=== PATIENT | female | born 1995 | race Caucasian/White ===

== ENCOUNTER 2024-06-08 12:10 | Inpatient (IN) | payer MEDICAID, OTHER, SELFPAY ==
--- NOTE | 2024-06-08 12:14 | ED.GENADULT ---
HPI - General Adult General Chief complaint: Psychiatric Symptoms Stated complaint: Psych eval? Time Seen by Provider: 06/08/24 12:37 Source: patient Mode of arrival: ambulatory Limitations: no limitations History of Present Illness ED Provider: Patria Baptiste PA-C HPI narrative: Patient is a 28 year old assigned female at with a history of bipolar disorder presenting to the emergency department today with new homelessness and not medication compliant. Patient states that over the last year and a half she has not been taking her medications like she is supposed to for her bipolar disorder and her psychiatrist retired / stopped practicing. Patient states that she is newly homeless and that has caused her racing thoughts to be worse. Patient denies any dizziness, lightheadedness, abdominal pain, nausea, vomiting, fever, chills, blurry vision, double vision, loss of vision, chest pain, difficulty breathing, shortness of breath, back pain, night sweats, pain with urination, increased urinary frequency, increased urinary urgency, blood in her urine or stool, syncope or a near syncopal episode, recent trauma or falls, bowel incontinence, bladder incontinence, or any other complaints at this time. Relieving factors: none Exacerbating factors: none Associated symptoms: denies other symptoms Treatments prior to arrival: none Related Data Home Medications ?Medication ?Instructions ?Recorded ?Confirmed No Known Home Meds 06/08/24 06/08/24 Allergies Allergy/AdvReac Type Severity Reaction Status Date / Time No Known Allergies Allergy Verified 06/08/24 12:21 Review of Systems Constitutional: Constitutional: Reports no additional constitutional complaints, Denies chills, Denies fever(s) and Denies night sweats Eyes: Eyes: Reports no additional eye complaints, Denies blurry vision, Denies change in vision, Denies diplopia, Denies eye discharge, Denies loss of vision and Denies eye pain ENT: Denies dizziness Cardiovascular: Cardiovascular: Reports no additional cardiovascular complaints, Denies chest pain, Denies lightheadedness, Denies Loss of Consciousness and Denies dyspnea Respiratory: Respiratory: Reports no additional respiratory complaints and Denies dyspnea Gastrointestinal: Gastrointestinal: Reports no additional gastrointestinal complaints, Denies abdominal pain, Denies melena, Denies hematochezia, Denies change in bowel habits and Denies change in stool character Genitourinary: Genitourinary: Denies hematuria, Denies urinary frequency, Denies dysuria, Denies urinary incontinence, Denies urinary hesitancy and Denies urinary urgency Musculoskeletal: Musculoskeletal: Reports no additional musculoskeletal complaints, Denies numbness and Denies tingling Neurologic: Denies dizziness, Denies loss of vision, Denies numbness and Denies tingling Psychiatric: Comments: racing thoughts Endocrine: Endocrine: Reports no additional endocrine complaints Hematologic/Lymphatic: Hematologic/Lymphatic: Reports no additional hematologic/lymphatic complaints Allergic/Immunologic: Allergic/Immunologic: Reports no additional allergic/immunologic complaints PMFSH Past Medical History Attestation statement: The following information was validated with the patient. Source: old records reviewed and nursing notes reviewed Social History Social History Advance Directives: No Physical Exam ED Vital Signs: Vital Signs - 24 hr 06/08/24 21:09 06/08/24 23:46 06/09/24 09:03 Temperature 98.5 F 98.5 F 97.7 F Pulse Rate 87 87 72 Respiratory Rate 16 16 14 Blood Pressure 128/76 128/76 99/59 L Pulse Oximetry 98 98 97 Oxygen Delivery Method Room Air Room Air Room Air BMI result Body Mass Index 20.7 Const General: cooperative, no acute distress, alert and awake Nutritional Appearance: well nourished Orientation/consciousness: patient oriented x3 Limitations: no limitations HENMT Head: Yes normal to inspection and Yes atraumatic Ears: hearing grossly normal bilaterally and external ears normal General nose exam: Normal external nose present, no nasal discharge noted and no epistaxis Face and sinus: Yes normal facial exam, No abrasion and No laceration Mouth: Normal oral and palatal mucosa present, no drooling and no muffled voice Eyes General: appearance normal, both eyes and all related structures Periorbital: periorbital findings normal Eyelids: Yes eyelids normal Conjunctivae: conjunctivae normal Pupils: Equal, round and reactive pupils present EOM: EOMs intact bilaterally Neck Neck: Yes normal visual inspection, Yes full ROM and Yes no lymphadenopathy Chest Chest palpation & inspection: normal inspection of the chest Resp Effort & Inspection: normal respiratory effort and able to speak in complete sentences GI Inspection: Yes normal to inspection Neuro General: patient oriented x3 and moves all extremities Cranial nerves: Yes Equal, round and reactive pupils present Cognition (Neuro): normal cognition Extrem General: Yes normal to inspection, Yes full ROM and Yes capillary refill normal Psych Appearance: grossly normal Mental Status: mental status grossly normal Attitude: cooperative Thought process: Flight of ideas present Course Course Course Narrative: This is an RME done by FRANCES Polo: Additional HPI, ROS, PE not included below will be deferred to primary provider. 28 yoa female presents w/ Hx of Bipolar, anxiety, with concerns of feeling at rock bottom , poor appetite, has severe panic attack for the past few days. States shes felt up and down with her moods, she reports taking zoloft, xanax in the past. Does not have a psychiatrist at the moment and has not taken any mental health medications. She states shes homeless. No drugs, alcohol or tobacco use. No SI or HI. Appearance: Alert.? Oriented X3.? No acute cardiopulmonary distress distress.? Head: Normocephalic, atraumatic, no step-offs or deformities Neck: Normal inspection.? Neck supple.? CVS: Pulses normal.? Respiratory: No respiratory distress.? Skin: ? Normal skin color. Extremities: 5/5 strength to bilateral upper and lower extremities Neuro: Oriented X 3.? No motor deficit.? No sensory deficit. Reevaluation(s) Reevaluation #1: Physician observation continued. VS stable, inpatient bed search was given zyprexa and ativan yesterday with good effect, benadryl to sleep, no acute events overnight ELI 727am 06/09/24 Reevaluation #2: observation care revealed that the patient does meet psychiatric necessity for hospitalization. final disposition discussed with the patient. The patient completed observation care at 135pm inpatient admission 06/09/24 ELI Medications Administered Discontinued Medications Generic Name Dose Route Start Last Admin Trade Name Freq PRN Reason Stop Dose Admin Diphenhydramine HCl 50 mg 06/08/24 22:10 06/08/24 22:16 Diphenhydramine Hcl 25 Mg Capsule PO 06/08/24 22:11 50 mg ONCE ONE Administration Lorazepam 2 mg 06/08/24 13:08 06/08/24 13:13 Lorazepam 1 Mg Tablet PO 06/08/24 13:09 2 mg ONCE ONE Administration Lorazepam 2 mg 06/09/24 11:58 06/09/24 12:04 Lorazepam 1 Mg Tablet PO 06/09/24 11:59 2 mg ONCE ONE Administration Olanzapine 5 mg 06/08/24 13:49 06/08/24 14:06 Olanzapine 5 Mg Tablet PO 06/08/24 13:50 5 mg ONCE ONE Administration Medical Decision Making Medical Decision Making [facility] Narrative: Patient is a 28 year old assigned female at with a history of bipolar disorder presenting to the emergency department today with new homelessness and untreated bipolar disorder. Patient's physical exam showed a manic individual. Patient's blood work was unremarkable. Patient's urine showed a possible UTI however, the patient has no complaints or symptoms at this time, will await culture before initiating treatment. I explained my physical exam findings as well as all test results to the patient. I answered all questions asked by the patient. Patient was evaluated by the CARE team who recommended inpatient level of care. Patient will remain in physician observation until she is either admitted here in our psychiatric unit or she is accepted by an outside facility. Differential Diagnosis Differential Diagnoses: The differential diagnosis associated with the presentation includes Manic Untreated bipolar disorder Admission/Observation Consideration of admission/observation: Escalation of care including admission/observation considered Patient meets in patient level of care for psychiatric admission. Consult Healthcare Provider Management of the patient was discussed with: Behavioral Health Provider (recommended inpatient level of care as noted in the MDM Rationale portion of this note.) Lab Data [facility] Lab Attestation statement: I reviewed the patient's lab results. My interpretation of these results are in the MDM Rationale portion of this note. 06/08/24 12:25 06/08/24 12:25 Labs: Lab Results 06/08/24 06/08/24 Range/Units 12:25 12:42 WBC 8.2 (4.8-10.8) X10*3/uL RBC 4.43 (4.20-5.50) X10*6/uL Hgb 13.8 (12.0-16.0) g/dl Hct 41.3 (37.0-47.0) % MCV 93.2 (80.0-98.0) fL MCH 31.2 (27.0-33.0) pg MCHC 33.4 (31.0-35.0) g/dl RDW 13.3 (11.0-16.0) % Plt Count 366 (160-400) X10*3/uL MPV 10.9 (9.4-12.3) fL Immature Gran % (Auto) 0.2 (0.0-0.4) % Neut % (Auto) 58.1 (45-73) % Lymph % (Auto) 32.5 (20-40) % [place] % (Auto) 8.0 (2-11) % Eos % (Auto) 0.6 (0-4) % Baso % (Auto) 0.6 (0-2) % Lymph # (Auto) 2.7 (1.2-4.9) X10*3/uL [place] # (Auto) 0.7 (0.1-1.2) X10*3/uL Eos # (Auto) 0.1 (0.0-0.4) X10*3/uL Baso # (Auto) 0.1 (0.0-0.2) X10*3/uL Abs Immat Gran (auto) 0.02 (0.00-0.03) X10*3/uL Absolute Neuts (auto) 4.7 (2.0-8.3) x10*3/uL Absolute Nucleated RBC 0.000 (0.0-0.012) X10*3/uL Nucleated RBC % (auto) 0.0 (0.0-0.2) /100WBC Sodium 137 (135-145) mmol/L Potassium 4.1 (3.3-5.1) mmol/L Chloride 101 (96-108) mmol/L Carbon Dioxide 27 (22-29) mmol/L Anion Gap 13 (12-20) BUN 9 (9-16) mg/dL Creatinine 0.99 (0.5-1.4) mg/dL Estim Creat Clear Calc 80.0 Estimated GFR > 60 Random Glucose 110 (60-115) mg/dL Calcium 9.6 (8.4-10.2) mg/dL Magnesium 2.4 (1.6-2.6) mg/dL Total Bilirubin 0.7 (0.0-1.0) mg/dL AST 18 (5-31) U/L ALT 14 (0-31) U/L Alkaline Phosphatase 41 (39-117) U/L Total Protein 7.9 (6.5-8.0) g/dL Albumin 4.5 (3.5-5.0) g/dL Beta HCG, Quant < 2 mIU/mL Urine Color Yellow Urine Appearance Cloudy Urine pH 6.0 (5.0-9.0) Ur Specific [place] >= 1.030 H (1.005-1.025) Urine Protein 30 (1+) H (Neg-Trace) mg/dL Urine Glucose (UA) Negative (Negative) mg/dL Urine Ketones Trace (Negative) mg/dL Urine Blood Negative (Negative) Urine Nitrite Negative (Negative) Ur Leukocyte Esterase Small (1+) H (Negative) Urine RBC 0-2 (0-2) /HPF Urine WBC 6-10 (0-5) /HPF Ur Squamous Epith Cells >20 (0-2) /HPF Urine Bacteria 2+ (None Seen) Hyaline Casts 0-2 (0-2) /LPF Urine Test NEGATIVE (NEGATIVE) Urine Opiates Screen Not Detected (Not Detect) Ur Buprenorphine Scrn Not Detected (Not Detect) ng/mL Ur Oxycodone Screen Not Detected (Not Detect) ng/mL Urine Methadone Screen Not Detected (Not Detect) ng/mL Urine Fentanyl Screen POSITIVE H (Not Detect) Ur Barbiturates Screen Not Detected (Not Detect) Ur Phencyclidine Scrn Not Detected (Not Detect) Ur Amphetamines Screen Not Detected (Not Detect) U Benzodiazepines Scrn Not Detected (Not Detect) Urine Cocaine Screen POSITIVE H (Not Detect) U Marijuana (THC) Screen Not Detected (Not Detect) Ethyl Alcohol < 10 mg/dL Critical Care Time Critical Care Time Critical Care Time: Yes Total Critical Care Time: 34 Attestation: I spent 34 minutes of Critical Care Time with this patient. This does not include time spent on separately reported billable procedures. Discharge Plan Discharge Clinical Impression: Tracy Patient Disposition: Admitted As Inpatient Interventions: [place]-Suicide Risk Severity Scale Last Done: 06/08/24 18:58
[2024-06-08 12:15] VITALS: BP 147/75; PULSE 83; RESP 16; TEMP 37; O2SAT 98; BMI 20.7
[2024-06-08 12:32] LABS: MANUAL DIFF FLAG NO
[2024-06-08 12:56] LABS: Appearance Urine Cloudy; Color Urine Yellow; Glucose Urine UA Negative (Negative); Leukocyte Esterase Urine Small (1+) (Negative); Nitrite Urine Negative (Negative); Specific Gravity - Urine >= 1.030 (1.005-1.025); UMIC TRIGGER UACC YES; Urine Blood Negative (Negative); Urine Ketones Trace mg/dL (Negative); Urine Protein 30 (1+) mg/dL (Neg-Trace)
[2024-06-08 12:57] LABS: UPreg QC Valid YES; Urine Pregnancy NEGATIVE (NEGATIVE)
[2024-06-08 13:01] LABS: Alanine Aminotransferase 14 U/L (0-31); Albumin Level 4.5 g/dL (3.5-5.0); Alkaline Phosphatase 41 U/L (39-117); Anion Gap 13 (12-20); Aspartate Amino Transferase 18 U/L (5-31); Bilirubin Total 0.7 mg/dL (0.0-1.0); Blood Urea Nitrogen 9 mg/dL (9-16); Calcium 9.6 mg/dL (8.4-10.2); Carbon Dioxide 27 mmol/L (22-29); Chloride 101 mmol/L (96-108); Estimated Glomerular Filt Rate > 60; Ethanol < 10 mg/dL; Glucose Random 110 mg/dL (60-115); HCG Quantitative < 2 mIU/mL; Magnesium 2.4 mg/dL (1.6-2.6); Potassium 4.1 mmol/L (3.3-5.1); Sodium 137 mmol/L (135-145); Total Protein 7.9 g/dL (6.5-8.0)
[2024-06-08 13:08] LABS: Amphetamine Screen Urine Not Detected (Not Detect); Barbiturates, Urine Not Detected (Not Detect); Benzodiazepines Screen Urine Not Detected (Not Detect); Buprenorphine Scr Not Detected (Not Detect); Cannabinoid Screen Urine Not Detected (Not Detect); Cocaine Screen Urine POSITIVE (Not Detect); Fentanyl, urine POSITIVE (Not Detect); Methadone Screen, Urine Not Detected (Not Detect); Opiate Screen Urine Not Detected (Not Detect); Oxycodone Screen Urine Not Detected (Not Detect); Phencyclidine Screen Urine Not Detected (Not Detect)
[2024-06-08] MEDS: LORazepam 1 MG TABLET 2 MG PO (13:13)
--- NOTE | 2024-06-08 13:16 | PC.NURSE ---
pt medicated per order
[2024-06-08 13:28] LABS: Basophils Absolute Auto 0.1 X10*3/uL (0.0-0.2); Basophils Percent Auto 0.6 % (0-2); Eosinophils Absolute Auto 0.1 X10*3/uL (0.0-0.4); Eosinophils Percent Auto 0.6 % (0-4); Hematocrit 41.3 % (37.0-47.0); Hemoglobin 13.8 g/dl (12.0-16.0); Imm Gran Abs Auto 0.02 X10*3/uL (0.00-0.03); Imm Gran Pct Auto 0.2 % (0.0-0.4); Lymphocytes Absolute Auto 2.7 X10*3/uL (1.2-4.9); Lymphocytes Percent Auto 32.5 % (20-40); Mean Corpuscular HGB Conc 33.4 g/dl (31.0-35.0); Mean Corpuscular Hemoglobin 31.2 pg (27.0-33.0); Mean Corpuscular Volume 93.2 fL (80.0-98.0); Mean Platelet Volume 10.9 fL (9.4-12.3); Monocytes Absolute Auto 0.7 X10*3/uL (0.1-1.2); Neutrophils Absolute Auto 4.7 x10*3/uL (2.0-8.3); Neutrophils Percent Auto 58.1 % (45-73); Platelet Count 366 X10*3/uL (160-400); Red Blood Count 4.43 X10*6/uL (4.20-5.50); Red Cell Distribution Width 13.3 % (11.0-16.0); White Blood Count 8.2 X10*3/uL (4.8-10.8)
[2024-06-08 13:47] LABS: Bacteria Urine 2+ (None Seen); Hyaline Casts Urine 0-2 /LPF (0-2); RBC Urine 0-2 /HPF (0-2); Squamous Epithelial Cell Urine >20 /HPF (0-2); UACC Culture Trigger YES
[2024-06-08] MEDS: OLANZapine 5 MG TABLET PO (14:06)
--- NOTE | 2024-06-08 18:57 | PC.NURSE ---
patient appears to remain at rest at present respirations are even and unlabored patient appears in no distress.
[2024-06-08 21:09] VITALS: BP 128/76; PULSE 87; RESP 16; TEMP 36.9; O2SAT 98
--- NOTE | 2024-06-08 21:48 | MHC.EDTECH ---
pt given sandwich and ochoa aubrey
[2024-06-08] MEDS: diphenhydrAMINE HCL 25 MG CAPSULE 50 MG PO (22:16)
[2024-06-08 23:46] VITALS: BP 128/76; PULSE 87; RESP 16; TEMP 36.9; O2SAT 98
[2024-06-09 09:03] VITALS: BP 99/59; PULSE 72; RESP 14; TEMP 36.5; O2SAT 97
--- NOTE | 2024-06-09 10:04 | ECG_ITS ---
Test Reason : qtc check Blood Pressure : / mmHG Vent. Rate : 080 BPM Atrial Rate : 080 BPM P-R Int : 104 ms QRS Dur : 084 ms QT Int : 354 ms P-R-T Axes : 029 019 012 degrees QTc Int : 408 ms Sinus rhythm with short MN Otherwise normal ECG No previous ECGs available Referred By: Rebekah Swenson Electronically Signed By:CYNTHIA NORTON
--- NOTE | 2024-06-09 10:50 | PHA.MEDREC ---
Pharmacy Consult ? Medication Reconciliation Pharmacy has reviewed the medication reconciliation completed completed by nursing.
[2024-06-09] MEDS: LORazepam 1 MG TABLET 2 MG PO (12:04)
[2024-06-09 15:52] VITALS: BP 123/72; PULSE 84; RESP 18; TEMP 36.6; O2SAT 100
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
[2024-06-09 20:00] VITALS: BP 118/75; PULSE 84; RESP 16; TEMP 36.8; O2SAT 100
[2024-06-09] MEDS: QUEtiapine Fumarate 25 MG TABLET PO (21:22)
[2024-06-09] MEDS: Zolpidem Tartrate 5 MG TABLET PO (21:22)
[2024-06-09] MEDS: hydrOXYzine HCL 25 MG TABLET PO (21:23)
[2024-06-10 08:00] VITALS: BP 98/51; PULSE 72; RESP 14; TEMP 36.9; O2SAT 97
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
[2024-06-10] MEDS: Nicotine 21 MG PATCH.TD24 TRANSDERMA (09:09)
[2024-06-10 09:40] LABS: Cholesterol 132 mg/dL (<200); HDL Cholesterol 39 mg/dL (>40); LDL Cholesterol Calculated 77 mg/dL (<100); Triglycerides 81 mg/dL (<150)
[2024-06-10 09:49] LABS: Thyroid Stimulating Hormone 1.63 uIU/mL (0.32-4.0)
[2024-06-10 10:24] LABS: Vitamin B12 557 pg/mL (200-900)
[2024-06-10 10:49] LABS: Estimated Average Glucose 94 mg/dL; Hemoglobin A1c % 4.9 % (<6.0)
[2024-06-10] MEDS: hydrOXYzine HCL 25 MG TABLET PO (10:49)
[2024-06-10] MEDS: Nicotine 7 MG PATCH.TD24 TRANSDERMA (11:47)
[2024-06-10] MEDS: guanFACINE HCl ER 1 MG TAB.ER.24H PO (11:47)
[2024-06-10] MEDS: QUEtiapine Fumarate 50 MG TABLET PO (14:43)
[2024-06-10 19:38] VITALS: BP 117/76; PULSE 86; RESP 18; TEMP 36.6; O2SAT 100
[2024-06-10] MEDS: Mirtazapine 30 MG TABLET PO (20:38)
[2024-06-10] MEDS: Zolpidem Tartrate 5 MG TABLET PO (20:38)
[2024-06-11 07:10] VITALS: BP 116/67; PULSE 71; RESP 16; RESP 18; TEMP 36.4; O2SAT 100
[2024-06-11] MEDS: QUEtiapine Fumarate 50 MG TABLET PO ×3 (07:25→20:53)
[2024-06-11] MEDS: Nicotine 7 MG PATCH.TD24 TRANSDERMA (08:48)
[2024-06-11] MEDS: guanFACINE HCl ER 1 MG TAB.ER.24H PO ×2 (08:48→20:50)
--- NOTE | 2024-06-11 17:24 | HO.PSYCHPN ---
Subjective Subjective Date of Service: 06/11/24 Reason For Visit: SI Interim History: slept very well, decreased anxiety. amenable to DC ambien and increase intuniv to BID. per staff, signed 3-day up 06/15. denies SI. engaged. anxious. taking meds. slept 10 hours. Mental Status Exam Mental Status Exam Narrative: dressed in hospital attire, adequately groomed. cooperative. no PMA/PMR. speech nml rate, amount, loudness, tone, latency. thoughts linear and logical. affect full range, normo-intense, non-labile. mood improved. no SI/SIBI/HI/AVH expressed. Diagnostics Vital Signs (24Hr): Vital Signs - 24 hr 06/10/24 19:38 06/11/24 07:10 06/11/24 07:10 Temperature 97.9 F 97.6 F 97.6 F Pulse Rate 86 71 71 Respiratory Rate 18 18 16 Blood Pressure 117/76 116/67 116/67 Pulse Oximetry 100 100 100 Oxygen Delivery Method Room Air Room Air BMI result Body Mass Index 20.7 Labs 06/08/24 12:25 06/08/24 12:25 Labs: Laboratory Results - last 48 hr 06/10/24 08:57 Estimat Average Glucose 94 Hemoglobin A1c % 4.9 Triglycerides 81 Cholesterol 132 LDL Cholesterol, Calc 77 HDL Cholesterol 39 L Vitamin B12 557 Folate 10.0 TSH 1.63 Free T4 0.80 Medications Medications Current Medications Acetaminophen (Acetaminophen 325 Mg Tablet) 650 mg PO Q6H PRN PRN Reason: Headache/Pain Mild Scale (1-3) Al Hydroxide/Mg Hydroxide (Magnesium Hydrox/Alum Hydrox 30 Ml Oral.Susp) 30 ml PO Q6H PRN PRN Reason: Heartburn/Nausea Guanfacine HCl (Guanfacine Hcl Er 1 Mg Tab.Er.24h) 1 mg PO BID CHRISTI Hydroxyzine HCl (Hydroxyzine Hcl 25 Mg Tablet) 25 mg PO Q6H PRN PRN Reason: Anxiety Last Admin: 06/10/24 10:49 Dose: 25 mg Magnesium Hydroxide (Milk Of Magnesia 30 Ml Oral.Susp) 30 ml PO DAILY PRN PRN Reason: Constipation Mirtazapine (Mirtazapine 30 Mg Tablet) 30 mg PO BEDTIME CHRISTI Last Admin: 06/10/24 20:38 Dose: 30 mg Nicotine (Nicotine 7 Mg Patch.Td24) 7 mg TRANSDERMA DAILY CHRISTI Last Admin: 06/11/24 08:48 Dose: 7 mg Nicotine Polacrilex (Nicotine Polacrilex 2 Mg Gum) 4 mg BUCCAL Q2H PRN PRN Reason: Nicotine Cravings Quetiapine Fumarate (Quetiapine Fumarate 50 Mg Tablet) 50 mg PO Q4H PRN PRN Reason: moderate anxiety Last Admin: 06/11/24 12:19 Dose: 50 mg Allergies Allergies Allergy/AdvReac Type Severity Reaction Status Date / Time No Known Allergies Allergy Verified 06/08/24 12:21 Assessment & Plan Assessment & Plan (1) Cocaine use disorder: Status: Acute Code(s): F14.10 - Cocaine abuse, uncomplicated (2) Chronic post-traumatic stress disorder (PTSD): Status: Acute Code(s): F43.12 - Post-traumatic stress disorder, chronic Plan 06/10: increase seroquel PRNs to 50 mg each. decrease nicotine patch to 7 mg each. start guanfacine ER 1 mg daily. start remeron 30 mg QHS. 06/11: D/C ambien as unnecessary. increase intuniv to BID. slept very well, anxiety improved. Reason for continued inpatient stay Substantial Risk for: inability to function and rapid decompensation Time Spent With Patient Time: Total time managing care of this patient today ____ minutes.
[2024-06-11] MEDS: Mirtazapine 30 MG TABLET PO (20:50)
[2024-06-11 21:10] VITALS: BP 112/66; PULSE 62; RESP 16; TEMP 36.3; O2SAT 100
[2024-06-12 07:46] VITALS: BP 99/51; PULSE 87; RESP 16; TEMP 36.6; O2SAT 100
[2024-06-12] MEDS: Nicotine 7 MG PATCH.TD24 TRANSDERMA (08:16)
[2024-06-12] MEDS: guanFACINE HCl ER 1 MG TAB.ER.24H PO ×3 (08:17→20:01)
[2024-06-12] MEDS: QUEtiapine Fumarate 50 MG TABLET PO (08:17)
--- NOTE | 2024-06-12 16:56 | P.PNPSI_ITS ---
Subjective Subjective Date of Service: 06/12/24 Reason For Visit: SI Interim History: sleeping well. agreeable to increase intuniv to TID and decrease seroquel PRNs to 25 mg each. per staff, 3-day up wed. social. family visit. some dep/anx. sleeping better - slept about 9 hours. taking meds. attending groups. Mental Status Exam Mental Status Exam Narrative: dressed in hospital attire, adequately groomed. cooperative. no PMA/PMR. speech nml rate, amount, loudness, tone, latency. thoughts linear and logical. affect full range, normo-intense, non-labile. mood improved. no SI/SIBI/HI/AVH expressed. Diagnostics Vital Signs (24Hr): Vital Signs - 24 hr 06/11/24 21:10 06/12/24 07:46 Temperature 97.3 F 97.9 F Pulse Rate 62 87 Respiratory Rate 16 16 Blood Pressure 112/66 99/51 L Pulse Oximetry 100 100 Oxygen Delivery Method Room Air Room Air BMI result Body Mass Index 20.7 Labs 06/08/24 12:25 06/08/24 12:25 Medications Medications Current Medications Acetaminophen (Acetaminophen 325 Mg Tablet) 650 mg PO Q6H PRN PRN Reason: Headache/Pain Mild Scale (1-3) Al Hydroxide/Mg Hydroxide (Magnesium Hydrox/Alum Hydrox 30 Ml Oral.Susp) 30 ml PO Q6H PRN PRN Reason: Heartburn/Nausea Guanfacine HCl (Guanfacine Hcl Er 1 Mg Tab.Er.24h) 1 mg PO TID [facility] Last Admin: 06/12/24 15:22 Dose: 1 mg Hydroxyzine HCl (Hydroxyzine Hcl 25 Mg Tablet) 25 mg PO Q6H PRN PRN Reason: Anxiety Last Admin: 06/10/24 10:49 Dose: 25 mg Magnesium Hydroxide (Milk Of Magnesia 30 Ml Oral.Susp) 30 ml PO DAILY PRN PRN Reason: Constipation Mirtazapine (Mirtazapine 30 Mg Tablet) 30 mg PO BEDTIME [facility] Last Admin: 06/11/24 20:50 Dose: 30 mg Nicotine (Nicotine 7 Mg Patch.Td24) 7 mg TRANSDERMA DAILY [facility] Last Admin: 06/12/24 08:16 Dose: 7 mg Nicotine Polacrilex (Nicotine Polacrilex 2 Mg Gum) 4 mg BUCCAL Q2H PRN PRN Reason: Nicotine Cravings Quetiapine Fumarate (Quetiapine Fumarate 25 Mg Tablet) 25 mg PO Q4H PRN PRN Reason: moderate anxiety Allergies Allergies Allergy/AdvReac Type Severity Reaction Status Date / Time No Known Allergies Allergy Verified 06/08/24 12:21 Assessment & Plan Assessment & Plan (1) Cocaine use disorder: Status: Acute Code(s): F14.10 - Cocaine abuse, uncomplicated (2) Chronic post-traumatic stress disorder (PTSD): Status: Acute Code(s): F43.12 - Post-traumatic stress disorder, chronic Plan 06/10: increase seroquel PRNs to 50 mg each. decrease nicotine patch to 7 mg each. start guanfacine ER 1 mg daily. start remeron 30 mg QHS. 06/11: D/C ambien as unnecessary. increase intuniv to BID. slept very well, anxiety improved. 06/12: continues to sleep well, feel improved. increase intuniv to TID, decrease seroquel PRNs to 25 mg each. 3-day notice up . Reason for continued inpatient stay Substantial Risk for: inability to function and rapid decompensation Time Spent With Patient Time: Total time managing care of this patient today ____ minutes.
[2024-06-12 19:22] VITALS: BP 114/77; PULSE 85; RESP 16; TEMP 36.9; O2SAT 99
[2024-06-12] MEDS: Mirtazapine 30 MG TABLET PO (20:01)
[2024-06-13 07:15] VITALS: BP 109/60; PULSE 66; RESP 14; TEMP 36.8; O2SAT 99
[2024-06-13] MEDS: Nicotine 7 MG PATCH.TD24 TRANSDERMA (08:00)
[2024-06-13] MEDS: guanFACINE HCl ER 1 MG TAB.ER.24H PO ×3 (08:00→20:32)
[2024-06-13] MEDS: hydrOXYzine HCL 25 MG TABLET PO ×2 (10:32→20:31)
--- NOTE | 2024-06-13 14:00 | HO.PSYCHPN ---
Subjective Subjective Date of Service: 06/13/24 Reason For Visit: SI Interim History: slept well. no complaints. preparing to DC weds. per staff, 3-day up weds. c/o dep/anx. broad affect. + groups. + meds. sleeping well without ambien or seroquel at HS. Mental Status Exam Mental Status Exam Narrative: dressed in hospital attire, adequately groomed. cooperative. no PMA/PMR. speech nml rate, amount, loudness, tone, latency. thoughts linear and logical. affect full range, normo-intense, non-labile. mood improved. no SI/SIBI/HI/AVH expressed. Diagnostics Vital Signs (24Hr): Vital Signs - 24 hr 06/12/24 19:22 06/13/24 07:15 Temperature 98.4 F 98.3 F Pulse Rate 85 66 Respiratory Rate 16 14 Blood Pressure 114/77 109/60 Pulse Oximetry 99 99 Oxygen Delivery Method Room Air Room Air BMI result Body Mass Index 20.7 Labs 06/08/24 12:25 06/08/24 12:25 Medications Medications Current Medications Acetaminophen (Acetaminophen 325 Mg Tablet) 650 mg PO Q6H PRN PRN Reason: Headache/Pain Mild Scale (1-3) Al Hydroxide/Mg Hydroxide (Magnesium Hydrox/Alum Hydrox 30 Ml Oral.Susp) 30 ml PO Q6H PRN PRN Reason: Heartburn/Nausea Guanfacine HCl (Guanfacine Hcl Er 1 Mg Tab.Er.24h) 1 mg PO TID [facility] Last Admin: 06/13/24 08:00 Dose: 1 mg Hydroxyzine HCl (Hydroxyzine Hcl 25 Mg Tablet) 25 mg PO Q6H PRN PRN Reason: Anxiety Last Admin: 06/13/24 10:32 Dose: 25 mg Magnesium Hydroxide (Milk Of Magnesia 30 Ml Oral.Susp) 30 ml PO DAILY PRN PRN Reason: Constipation Mirtazapine (Mirtazapine 30 Mg Tablet) 30 mg PO BEDTIME [facility] Last Admin: 06/12/24 20:01 Dose: 30 mg Nicotine (Nicotine 7 Mg Patch.Td24) 7 mg TRANSDERMA DAILY [facility] Last Admin: 06/13/24 08:00 Dose: 7 mg Nicotine Polacrilex (Nicotine Polacrilex 2 Mg Gum) 4 mg BUCCAL Q2H PRN PRN Reason: Nicotine Cravings Quetiapine Fumarate (Quetiapine Fumarate 25 Mg Tablet) 25 mg PO Q4H PRN PRN Reason: moderate anxiety Allergies Allergies Allergy/AdvReac Type Severity Reaction Status Date / Time No Known Allergies Allergy Verified 06/08/24 12:21 Assessment & Plan Assessment & Plan (1) Cocaine use disorder: Status: Acute Code(s): F14.10 - Cocaine abuse, uncomplicated (2) Chronic post-traumatic stress disorder (PTSD): Status: Acute Code(s): F43.12 - Post-traumatic stress disorder, chronic Plan 06/10: increase seroquel PRNs to 50 mg each. decrease nicotine patch to 7 mg each. start guanfacine ER 1 mg daily. start remeron 30 mg QHS. 06/11: D/C ambien as unnecessary. increase intuniv to BID. slept very well, anxiety improved. 06/12: continues to sleep well, feel improved. increase intuniv to TID, decrease seroquel PRNs to 25 mg each. 3-day notice up . 06/13: doing well without ambien or seroquel at HS. 3-day up weds, planning to discharge then. Reason for continued inpatient stay Substantial Risk for: inability to function and rapid decompensation Time Spent With Patient Time: Total time managing care of this patient today __25__ minutes.
[2024-06-13 20:00] VITALS: BP 101/60; PULSE 66; RESP 16; TEMP 36.9; O2SAT 100
[2024-06-13] MEDS: Mirtazapine 30 MG TABLET PO (20:32)
[2024-06-14 08:00] VITALS: BP 87/48; PULSE 59; RESP 18; TEMP 36.8; O2SAT 99
[2024-06-14] MEDS: guanFACINE HCl ER 1 MG TAB.ER.24H PO ×3 (08:53→20:32)
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
[2024-06-14 20:00] VITALS: BP 94/50; PULSE 71; RESP 16; TEMP 36.9; O2SAT 100
[2024-06-14] MEDS: Mirtazapine 30 MG TABLET PO (20:32)
[2024-06-14] MEDS: hydrOXYzine HCL 25 MG TABLET PO (20:35)
[2024-06-15 07:52] VITALS: BP 99/52; PULSE 58; RESP 14; TEMP 36.9; O2SAT 100
[2024-06-15] MEDS: Nicotine 7 MG PATCH.TD24 TRANSDERMA (08:52)
[2024-06-15] MEDS: guanFACINE HCl ER 1 MG TAB.ER.24H PO (08:52)
== END 2024-06-15 10:23 | disposition home or self-care (01) | DRG 882 ==
LOC: HO.ED 14:15 → HO.PADLT16 06-09 13:33
PROVIDERS: Physician Assistant; Physician Assistant Medical; Admitting Provider Psychiatry & Neurology Psychiatry; Emergency Provider Emergency Medicine; Visit Provider Psychiatry & Neurology Psychiatry
DX: F43.12 Post-traumatic stress disorder, chronic (principal); Z59.02 Unsheltered homelessness; F14.10 Cocaine abuse, uncomplicated; F17.210 Nicotine dependence, cigarettes, uncomplicated; Z71.6 Tobacco abuse counseling; Z91.148 Patient's other noncompliance with medication regimen for other reason; R63.4 Abnormal weight loss; Z68.20 Body mass index [BMI] 20.0-20.9, adult; Z79.899 Other long term (current) drug therapy
CPT/HCPCS: 36415; 80053; 80061; 80307; 81001; 81025; 82607; 82746; 83036; 83735; 84439; 84443; 84702; 85025; 87086; 93005; 99284; S9485

== ENCOUNTER → 2024-06-09 13:24 | Outpatient (BNV) | payer OTHER, SELFPAY | PROVIDERS: Admitting Provider Psychiatry & Neurology Psychiatry; Emergency Provider Emergency Medicine; Visit Provider Psychiatry & Neurology Psychiatry | DX: F14.10 Cocaine abuse, uncomplicated (principal); F43.12 Post-traumatic stress disorder, chronic | CPT/HCPCS: 90792; 99231; 99232; 99239 ==

== ENCOUNTER 2024-06-23 01:07 | Emergency (ER) | payer MEDICAID, SELFPAY ==
[2024-06-23 01:14] VITALS: BP 117/78; PULSE 75; RESP 18; TEMP 36.6; O2SAT 98; BMI 21.1
[2024-06-23 02:00] VITALS: BP 111/70; PULSE 68; RESP 18; TEMP 36.8; O2SAT 100
[2024-06-23 02:31] LABS: Hematocrit 37.6 % (37.0-47.0); Hemoglobin 12.5 g/dl (12.0-16.0); Mean Corpuscular HGB Conc 33.2 g/dl (31.0-35.0); Mean Corpuscular Hemoglobin 31.2 pg (27.0-33.0); Mean Corpuscular Volume 93.8 fL (80.0-98.0); Mean Platelet Volume 10.4 fL (9.4-12.3); Platelet Count 314 X10*3/uL (160-400); Red Blood Count 4.01 X10*6/uL (4.20-5.50); Red Cell Distribution Width 14.1 % (11.0-16.0); White Blood Count 12.2 X10*3/uL (4.8-10.8)
[2024-06-23 02:52] LABS: Anion Gap 16 (12-20); Blood Urea Nitrogen 28 mg/dL (9-16); Calcium 9.9 mg/dL (8.4-10.2); Carbon Dioxide 25 mmol/L (22-29); Chloride 101 mmol/L (96-108); Creatinine Clr Calc Pharmacy 93.7; Estimated Glomerular Filt Rate > 60; Ethanol < 10 mg/dL; Glucose Random 89 mg/dL (60-115); Magnesium 2.5 mg/dL (1.6-2.6); Potassium 4.1 mmol/L (3.3-5.1); Sodium 138 mmol/L (135-145)
--- NOTE | 2024-06-23 03:52 | ED.GENADULT ---
HPI - General Adult General Chief complaint: ETOH/Substance Use Stated complaint: Crisis Time Seen by Provider: 06/23/24 03:51 Source: patient Mode of arrival: ambulatory Limitations: no limitations History of Present Illness ED Provider: Dr. Mclaughlin HPI narrative: patient presents requesting detox for her crack and heroine abuse. In addition, patient states she is chlamydia positive and has not been treated. Onset (ago): year(s) Related Data Previous Rx's ?Medication ?Instructions ?Recorded guanfacine 1 mg tablet,extended 1 mg PO TID 30 days #90 tabs 06/14/24 release 24 hr hydroxyzine HCl 25 mg tablet 25 mg PO Q4H PRN Anxiety 30 days 06/14/24 #180 tabs mirtazapine 30 mg tablet 30 mg PO BEDTIME 30 days #30 tabs 06/14/24 nicotine 7 mg/24 hr daily 7 mg transdermal DAILY 28 days #28 06/14/24 transdermal patch ea Allergies Allergy/AdvReac Type Severity Reaction Status Date / Time No Known Allergies Allergy Verified 06/23/24 01:19 Review of Systems Review of Systems: Yes all other systems are reviewed and are negative Neurologic: Denies Sensory deficit (Neuro) [facility] Social History Social History Household Members: None Housing: Homeless Do you presently have visiting nurse or other home services: No Patient Tobacco Use Status: Former Tobacco user Tobacco use type: Smokeless Tobacco Years Smoked: 10 Smoked in Last 30 Days: No e-Cigarette/Vaping Use: Former Use Second Hand Smoke Exposure: Yes Use of substances other than those prescribed or required for medical reasons: Yes Substance Use Type: Crack/Cocaine and Heroin Advance Directives: No Advance Directives Information Provided: Yes Do you have a plan to hurt others: No Plan Physical Exam ED Vital Signs: Vital Signs - 24 hr 06/23/24 01:14 06/23/24 02:00 06/23/24 05:05 Temperature 97.8 F 98.3 F 98.1 F Pulse Rate 75 68 84 Respiratory Rate 18 18 18 Blood Pressure 117/78 111/70 94/51 L Pulse Oximetry 98 100 98 Oxygen Delivery Method Room Air Room Air BMI result Body Mass Index 21.1 Const Other: thin female appearing unkept, looking older than stated age Nutritional Appearance: average body habitus Orientation/consciousness: oriented to person and patient oriented x3 Limitations: no limitations HENMT Head: Yes normal to inspection Ears: external ears normal General nose exam: Normal external nose present Mouth: Normal oral and palatal mucosa present and oropharynx normal Throat: Yes posterior oropharynx normal Eyes General: appearance normal, both eyes and all related structures Neck Neck: Yes normal visual inspection Chest Chest palpation & inspection: normal inspection of the chest Resp Auscultation: clear to auscultation bilaterally Cardio Jugular venous distension: no JVD Rate: regular rate Rhythm: regular rhythm Heart sounds: S1 normal heart sound present and S2 normal heart sound present GI Inspection: Yes normal to inspection Palpation (GI): Soft to palpation, nontender and No hepatosplenomegaly present Auscultation: normal bowel sounds General: Yes no CVA tenderness Back/Spine/Pelvis Back: no CVA tenderness Skin General skin exam: no rashes or lesions noted Neuro General: oriented to person and patient oriented x3 Cranial nerves: Yes CN's II-XII intact bilaterally Motor exam (neuro): 5/5 motor strength present throughout Sensory Exam: No Sensory deficit (Neuro) Extrem General: Yes normal to inspection Psych Appearance: grossly normal Course Reevaluation(s) Reevaluation #1: patient cleared medically, given ceftriaxone and doxy for presumed GC and chlamydia. Awaiting care team evaluation Time: 07:22 Reevaluation #2: physician observation: at this time patient placed in observation, patient needs time to be evaluated for possible detox. at this time she is resting comfortably Time: 07:23 Medications Administered Discontinued Medications Generic Name Dose Route Start Last Admin Trade Name Freq PRN Reason Stop Dose Admin Ceftriaxone Sodium 500 mg 06/23/24 03:53 06/23/24 05:00 Ceftriaxone Sodium 500 Mg Vial IM 06/23/24 03:54 500 mg ONCE ONE Administration Doxycycline Monohydrate 100 mg 06/23/24 03:53 06/23/24 05:00 Doxycycline Monohydrate 100 Mg Capsule PO 06/23/24 03:54 100 mg ONCE ONE Administration Medical Decision Making Differential Diagnosis Differential Diagnoses: The differential diagnosis associated with the presentation includes (polysubstance abuse, depression, STI) Admission/Observation Consideration of admission/observation: Escalation of care including admission/observation considered (upon arrival patient considered for admission) Consult Healthcare Provider Management of the patient was discussed with: Behavioral Health Provider Lab Data 06/23/24 02:18 06/23/24 02:18 Labs: Lab Results 06/23/24 Range/Units 02:18 WBC 12.2 H (4.8-10.8) X10*3/uL RBC 4.01 L (4.20-5.50) X10*6/uL Hgb 12.5 (12.0-16.0) g/dl Hct 37.6 (37.0-47.0) % MCV 93.8 (80.0-98.0) fL MCH 31.2 (27.0-33.0) pg MCHC 33.2 (31.0-35.0) g/dl RDW 14.1 (11.0-16.0) % Plt Count 314 (160-400) X10*3/uL MPV 10.4 (9.4-12.3) fL Absolute Nucleated RBC 0.000 (0.0-0.012) X10*3/uL Nucleated RBC % (auto) 0.0 (0.0-0.2) /100WBC Sodium 138 (135-145) mmol/L Potassium 4.1 (3.3-5.1) mmol/L Chloride 101 (96-108) mmol/L Carbon Dioxide 25 (22-29) mmol/L Anion Gap 16 (12-20) BUN 28 H (9-16) mg/dL Creatinine 0.89 (0.5-1.4) mg/dL Estim Creat Clear Calc 93.7 Estimated GFR > 60 Random Glucose 89 (60-115) mg/dL Calcium 9.9 (8.4-10.2) mg/dL Magnesium 2.5 (1.6-2.6) mg/dL Beta HCG, Quant < 2 mIU/mL Ethyl Alcohol < 10 mg/dL Independent Historian Clinical information obtained from an independent historian. History obtained from or confirmed by: EMS Chronic Conditions Patient?s care impacted by: Other (substance abuse) Social Determinants Patient?s care significantly limited by Social Determinants of Health including: Low income and Alcoholism and drug addiction in family Discharge Plan Discharge Clinical Impression: Polysubstance (including opioids) dependence w/o physiol dependence Patient Disposition: Still a Patient Prescriptions: No Action mirtazapine 30 mg Tablet 30 mg PO BEDTIME 30 Days Qty: 30 0RF hydroxyzine HCl 25 mg Tablet 25 mg PO Q4H PRN (Reason: Anxiety) 30 Days Qty: 180 0RF nicotine 7 mg/24 hr Patch 24 Hour 7 mg transdermal DAILY 28 Days Qty: 28 0RF guanfacine 1 mg Tablet Extended Release 24 Hr 1 mg PO TID 30 Days Qty: 90 0RF Print Language: Finnish
--- NOTE | 2024-06-23 04:12 | PC.NURSE ---
Pt given sandwich and juice, tolerated well.
[2024-06-23 04:59] LABS: HCG Quantitative < 2 mIU/mL
[2024-06-23] MEDS: cefTRIAXone sodium 500 MG VIAL IM (05:00)
[2024-06-23] MEDS: Doxycycline Monohydrate 100 MG CAPSULE PO (05:00)
[2024-06-23 05:05] VITALS: BP 94/51; PULSE 84; RESP 18; TEMP 36.7; O2SAT 98
[2024-06-23 08:24] VITALS: BP 94/49; PULSE 74; RESP 14; TEMP 36.7; O2SAT 98
--- NOTE | 2024-06-23 08:26 | PC.NURSE ---
patient awakens to verbal stimuli, calm and cooperative. patient VSS, respirations equal and unlabored, skin dry and intact. patient given gingerale. patient denies SI/HI
--- NOTE | 2024-06-23 08:54 | MHC.RECOVRN ---
Met with pt in ED11 after pt presented to ED for ATS. Pt laying in bed, awake, alert, easily engages in conversation. Pt reports cocaine use, INH, $50-$100 daily x 6 months. Denies other substances. Pt reports she has recently been to [facility] for 4 days, however, conducted a self directed discharge. Pt reports she does not want to stay in the area due to people, places, and things. Pt interested in any facility other than [facility]. Pt reports approx 8 years ago she went to a facility in [place] and was able to maintain recovery for 4 years. Pt reports as soon as she returned to the area she had a recurrence. Pt denies other questions or concerns for t/w.
[2024-06-23 09:17] LABS: Amphetamine Screen Urine Not Detected (Not Detect); Barbiturates, Urine Not Detected (Not Detect); Benzodiazepines Screen Urine Not Detected (Not Detect); Buprenorphine Scr Not Detected (Not Detect); Cannabinoid Screen Urine Not Detected (Not Detect); Cocaine Screen Urine POSITIVE (Not Detect); Fentanyl, urine Not Detected (Not Detect); Methadone Screen, Urine Not Detected (Not Detect); Opiate Screen Urine Not Detected (Not Detect); Oxycodone Screen Urine Not Detected (Not Detect); Phencyclidine Screen Urine Not Detected (Not Detect)
[2024-06-23 09:36] LABS: Appearance Urine Clear; Color Urine Yellow; Glucose Urine UA Negative (Negative); Leukocyte Esterase Urine Small (1+) (Negative); Nitrite Urine Negative (Negative); PH 5.5 (5.0-9.0); Specific Gravity - Urine >= 1.030 (1.005-1.025); UMIC TRIGGER UACC YES; Urine Blood Trace (Negative); Urine Ketones Trace mg/dL (Negative); Urine Protein Trace mg/dL (Neg-Trace)
[2024-06-23 09:42] LABS: Bacteria Urine 1+ (None Seen); Hyaline Casts Urine 0-2 /LPF (0-2); RBC Urine 0-2 /HPF (0-2); UACC Culture Trigger YES; WBC Urine 21-50 /HPF (0-5)
--- NOTE | 2024-06-23 10:11 | MHC.RECOVRN ---
Pt's information faxed to [place] at 9:30 for detox bed search.
[2024-06-23 10:12] VITALS: BP 103/56; PULSE 71; RESP 16; TEMP 36.8; O2SAT 98
--- NOTE | 2024-06-23 11:49 | PC.NURSE ---
patient d/c wth steady gait, recovery team arranged ride to detox center. patient alert and oriented x4.
--- NOTE | 2024-06-23 13:14 | MHC.RECOVRN ---
Pt picked via Lyft to go to [place] where she was accepted for detox.
== END 2024-06-23 11:50 | disposition home or self-care (01) ==
PROVIDERS: Emergency Provider Emergency Medicine
DX: F11.20 Opioid dependence, uncomplicated (principal); F14.10 Cocaine abuse, uncomplicated; Z79.899 Other long term (current) drug therapy; Z71.51 Drug abuse counseling and surveillance of drug abuser; Z51.81 Encounter for therapeutic drug level monitoring
CPT/HCPCS: 36415; 80048; 80307; 81001; 83735; 84702; 85027; 87086; 96372; 99284; J0696